=== PATIENT | female | born 1995 | race Caucasian/White ===

== ENCOUNTER 2021-07-08 04:24 | Inpatient (IN) | payer MEDICAID, SELFPAY ==
[2021-07-08] VITALS (28 sets, daily range): BP systolic 115–174; BP diastolic 67–97; PULSE 49–75; RESP 14–18; TEMP 36.2–37.1; O2SAT 98; BMI 36.8
[2021-07-08 04:34] LABS: Nitrazine Paper, PH Positive
[2021-07-08 04:36] LABS: Basophils % 0.3 %; Eosinophils # 0.1 10^3/uL (0.0-0.8); Eosinophils % 0.7 %; Hematocrit 35.4 % (37.0-47.0); Hemoglobin 11.8 g/dL (11.5-15.3); Lymphocytes # 2.2 10^3/uL (0.8-4.8); Lymphocytes % 28.3 %; Mean Corpuscular HGB Conc 33.3 g/dL (30.0-36.0); Mean Corpuscular Hemoglobin 29.4 pg (28.0-34.0); Mean Corpuscular Volume 88.3 fl (81-99); Mean Platelet Volume 12.5 fL (7.4-10.4); Monocytes # 0.7 10^3/uL (0.2-0.9); Neutrophils % 61.3 %; Nucleated Red Blood Cells % 0 %; Platelet Count 180 10^3/cmm (130-400); Red Blood Count 4.01 10^6/uL (4.1-5.3); Red Cell Distribution Width 13.1 % (12.1-15.1); White Blood Count 7.7 10^3/uL (4.0-10.0)
[2021-07-08] MEDS: lactated ringers 1,000 ML 999 ML IV ×2 (04:38→05:24)
--- NOTE | 2021-07-08 05:02 | ANES.PAUD2 ---
Pre-Anesthetic Update Pre-Anesthetic Assessment: Date of Surgery/Procedure: 07/08/21 Preop Diagnosis: previous Any changes to Pre-Anesthetic Assessment?: Yes Last Intake: 1999- food 2100- clear liquid Labs Last 48hrs: Laboratory Results - last 48 hr 07/08/21 04:26 WBC 7.7 RBC 4.01 L Hgb 11.8 Hct 35.4 L MCV 88.3 MCH 29.4 MCHC 33.3 RDW 13.1 Plt Count 180 MPV 12.5 H Neut % (Auto) 61.3 Lymph % (Auto) 28.3 [place] % (Auto) 9.0 Eos % (Auto) 0.7 Baso % (Auto) 0.3 Neut # (Auto) 4.70 Lymph # (Auto) 2.2 [place] # (Auto) 0.7 Eos # (Auto) 0.1 Baso # (Auto) 0.0 Nucleated RBC % (a uto) 0 Nucleated RBCs # 0.0 Vitals: Temperature 97.2 F L 07/08/21 04:04 Pulse Rate 58 L 07/08/21 04:52 Blood Pressure 140/75 07/08/21 04:52 Exam: Pre-Anes Outpt Exam: alert, oriented x 3, clear to auscultation bilaterally and regular rate & rhythm Cardiac Studies: No Data to Display
[2021-07-08] MEDS: metoclopramide 5 mg/mL SDV 2 mL 10 MG IVP (05:12)
[2021-07-08] MEDS: famotidine 20 mg/2 mL INJ IVP (05:12)
[2021-07-08] MEDS: citric acid-sodium citrate 30 mL UDC PO (05:14)
--- NOTE | 2021-07-08 05:26 | P.HP_ITS ---
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 She has a history of a . She has a scheduled C- section next week. She presented to the hospital with a complaint of ruptured membranes. She was checked and found to be grossly ruptured. She was nitrazine positive. Her has otherwise been unremarkable. Her blood type is O-. She received a RhoGam on April 19. She was found to have GBS positive urine e kaley in . Otherwise her labs are within normal limits. Review of Systems General: Reports: 10 or more systems reviewed and unremarkable except in HPI and below Const: Reports: fatigue; Denies: fever(s) Eyes: Denies: change in vision Card: Denies: chest pain Musc: Reports: back pain Khris/Lymph: Denies: easy bruising Vitals/I&O/Wt Last Vital Signs Temp 97.2 F L 07/08/21 04:04 Pulse 68 07/08/21 05:20 BP 132/89 07/08/21 05:20 07/07/21 07/07/21 07/08/21 14:59 22:59 06:59 Intake Total 765.9 / 765.9 Balance 765.9 / 765.9 Physical Exam Const: COMMON NORMALS: patient oriented x3 and alert HENMT: COMMON NORMALS: moist oral mucous membranes HEAD & SCALP: normal to inspection Chest: COMMONS NORMALS: normal inspection of the chest Resp: COMMON NORMALS: clear to auscultation bilaterally AUSCULTATION: clear to auscultation bilaterally Cardio: COMMON NORMALS: regular rate and regular rhythm RATE: regular rate RHYTHM: regular rhythm GI: INSPECTION: Yes normal to inspection and Yes other (Gravid) Extremity: COMMON NORMALS: normal to inspection GENERAL: Yes edema (Trace) Neuro: COMMON NORMALS: patient oriented x3, moves all extremities and no sensory deficits noted SENSORIUM/ORIENTATION: Yes alert Psych: COMMON NORMALS: mental status grossly normal Skin: COMMON NORMALS: no rashes or lesions noted GENERAL SKIN EXAM: no rashes or lesions noted Data : 07/08/21 04:26 A&P Assessment and plan (1) 39 weeks gestation of : Status: Acute (2) membranes, spontaneous rupture: Status: Acute (3) History of low transverse section: We will proceed with a section this morning. I once again discussed the risk of a including the risks of bleeding, infection, and damage intra-abdominal organs with both the patient and her significant other. Had no further questions and wished to proceed. Status: Acute Attestations Medical Necessity Statement*: Routine and post care anticipated Coding Level of Care Code Acute Digital Composer for Chg Fwd Exam Comprehensive Diagnoses 39 weeks gestation of Z3A.39 membranes, spontaneous rupture History of low transverse section Z98.891
--- NOTE | 2021-07-08 08:07 | P.OP_ITS ---
Operative Report Date of procedure: July 08, 2021 Pre-op Diagnosis: previous , 39-week EGA, spontaneous rupture membranes Post-op diagnosis: same Procedure Done: 1. Repeat lower transverse section Specimens removed/disposition: 1. Female infant with a weight of pounds 4 ounces, and Apgars of 9 and 9 2. Placenta with a three-vessel cord delivered intact Anesthesia: Other (Spinal) Estimated blood loss (mL): 500 Complications: None Condition: stable Disposition: floor (OB) Procedure: The patient was brought back to the operating room where she was prepped and draped in usual sterile fashion. Anesthesia was found to be adequate. A lower transverse skin incision was then made with a #10 blade. I then dissected down to the underlying subcutaneous tissue until arriving at the prerectal fascia. The fascia was then nicked with the scalpel bilaterally. The fascial incisions were then carried laterally with Eid scissors. Attention was then turned to the superior aspect of the incision which was grasped with kochers and tented up away from the underlying rectus abdominis muscles. The muscles were then dissected away from the fascia manually, and later with Stanton s cissors. Attention was then turned to the inferior aspect of the incision, and the fascia was dissected away from the underlying muscle in similar fashion. The rectus abdominis muscles were then spread manually. The peritoneum was entered manually. Excellent visualization of the uterus was noted. A lower transverse uterine incision was then made with a #10 blade. Upon arriving at the intrauterine cavity, the uterine incision was then extended manually. The was noted to be in vertex position. The baby was delivered without difficulty. After delivery of the head, the mouth and nose were suctioned at the site of the incision. There was no meconium. There was no nuchal cord. The baby was then completely delivered and placed on the abdomen. The cord was cut and clamped. The baby was then handed to the waiting nurse. The placenta was removed intact. Due to adhesions, the uterus was not externalized. The uterine incision was reapproximated in a single layer.. The first layer was performed with 0 Vicryl in a running locked stitch. The uterus was replaced into the abdomen. The peritoneum was then irrigated with warm saline. I reexamined the uterine incision and found it to be hemostatic. The rectus abdominis muscles were then reapproximated using 0 Vicryl in a running stitch. The fascia was then reapproximated using 0 Vicryl in running stitch. The subcutaneous tissue was then reapproximated using 0 Vicryl in a running stitch. The skin was reapproximated using jose francisco. A sterile dressing was placed. All counts were correct x2. Both the mother and baby were in stable condition. Associated Problem List Diagnoses (1) membranes, spontaneous rupture: (2) 39 weeks gestation of : (3) History of low transverse section:
[2021-07-08] MEDS: ondansetron 2 mg/ML SDV 2 mL 4 MG IVP (10:15)
[2021-07-08] MEDS: ketorolac 30 mg/mL INJ IVP ×2 (10:15→22:14)
[2021-07-08] MEDS: dextrose 5%-lactated ringers 1,000 ML 125 ML IV (15:51)
[2021-07-08 21:43] LABS: Hematocrit 32.9 % (37.0-47.0); Hemoglobin 10.9 g/dL (11.5-15.3); Mean Corpuscular HGB Conc 33.1 g/dL (30.0-36.0); Mean Corpuscular Hemoglobin 29.9 pg (28.0-34.0); Mean Corpuscular Volume 90.1 fl (81-99); Mean Platelet Volume 12.2 fL (7.4-10.4); Platelet Count 160 10^3/cmm (130-400); Red Blood Count 3.65 10^6/uL (4.1-5.3); Red Cell Distribution Width 13.2 % (12.1-15.1); White Blood Count 9.1 10^3/uL (4.0-10.0)
[2021-07-08] MEDS: lanolin oint 7 gm 1 APPLIC TOPICAL (22:14)
[2021-07-09 04:46] VITALS: BP 140/92; PULSE 78; RESP 14; TEMP 36.8; O2SAT 97
--- NOTE | 2021-07-09 07:09 | PM.OBGYDC ---
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 She had a scheduled planned for the subsequent week. As result she was set up for a after determined that her membranes had ruptured. Her was unremarkable. There are no complications. Her course was also unremarkable. She was passing flatus within 7 hours of surgery. Her pain was well controlled. Her bleeding was within normal limits. She tolerated eating well. She is ambulating without difficulty. She breast-fed well. Information Peripartum Data: Infant Delivery Method: Physical Exam Narrative: EXAM NARRATIVE: She is in no acute distress Lungs are clear auscultation bilaterally Her heart has a regular rate and rhythm Her fundus is below the umbilicus and firm Her dressing is clean, dry and intact Her extremities have trace edema Urinary Catheter Management^: Claros: Cath Placed During This Visit: yes, but has since been removed by the nurse Reason for Continuing Indwelling Catheter: Decision to DC Catheter Urinary Catheter Date of Insertion: 07/08/21 Urinary Catheter Time of Insertion: 06:00 Date Urinary Catheter Removed: 07/08/21 Time Urinary Catheter Discontinued: 18:45 Discharge Data Data Completed and Pending: Labs from last 24 hours 07/08/21 20:45 WBC 9.1 RBC 3.65 L Hgb 10.9 L Hct 32.9 L MCV 90.1 MCH 29.9 MCHC 33.1 RDW 13.2 Plt Count 160 MPV 12.2 H Vitals: Last Vital Signs Temp 98.2 F 07/09/21 04:46 Pulse 78 07/09/21 04:46 Resp 14 07/09/21 04:46 BP 140/92 07/09/21 04:46 Pulse Ox 97 07/09/21 04:46 Discharge Plan Discharge Patient Disposition: Home Condition: Stable Prescriptions: New ibuprofen 800 mg Tablet 800 mg PO TID Qty: 45 RF: 0 hydrocodone-acetaminophen 5-325 mg Tablet 1 - 2 tab PO Q4H PRN (Reason: Moderate To Severe Pain) Qty: 20 RF: 0 -U 106.5-1 mg Capsule 1 cap PO BREAKFAST Qty: 90 RF: 0 Discharge Orders: Discharge Order (Routine); Ordered 07/09/21 Ordered By: Rancho Bates Referrals: Rancho Bates MD [Primary Care Provider] - 4-7 days Discharge Diet: Usual diet Discharge Activity: Limit activity as instructed Patient Instructions: Depression (GEN), Pre-eclampsia and Eclampsia (DC), Bleeding (DC), OB - Agustin, OB Discharge Report, OB Food/Drug Interaction Guide, Opioid Safety, OB Home Care, OB Proud Parent Packet 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
[2021-07-09 10:23] VITALS: BP 123/77; PULSE 86; RESP 16; TEMP 36.5; O2SAT 98
[2021-07-09] MEDS: prenatal vitamin Capsule 1 CAP PO (10:53)
[2021-07-09] MEDS: docusate sodium 100 mg Capsule PO (10:53)
[2021-07-09] MEDS: ibuprofen 800 mg tablet PO ×2 (10:53→14:50)
[2021-07-09 15:46] VITALS: BP 134/86; PULSE 82; RESP 18; TEMP 36.5; O2SAT 99
[2021-07-09 16:10] VITALS: BP 134/86; PULSE 82; RESP 18; TEMP 36.5; O2SAT 99
== END 2021-07-09 16:05 | disposition home or self-care (01) | DRG 788 ==
LOC: OPOB 04:33 → OBGYN 04:33
PROVIDERS: Admitting Provider Family Medicine; PCP Family Medicine; Visit Provider Family Medicine
PROC: 10D00Z1 Extraction of Products of Conception, Low, Open Approach (ICD-10-PCS; CPT 59514; principal; 2021-07-08 06:00)
DX: O34.211 Maternal care for low transverse scar from previous cesarean delivery (principal); Z3A.39 39 weeks gestation of pregnancy; Z37.0 Single live birth; O99.824 Streptococcus B carrier state complicating childbirth
CPT/HCPCS: 12345; 36415; 51702; 59025; 59409; 83986; 85025; 85027; 85460; 86850; 86900; 90384; 96374; 96375; 99211; G0378; J0690; J1885; J2274; J2405; J2765; J3490

== ENCOUNTER 2025-03-17 14:18 | Oncology outpatient (recurring) (ONCR) | payer MEDICAID, SELFPAY ==
[2025-03-17] MEDS: rho(d) immune globulin 1,500 unit Syringe 1500 UNIT IM (15:12)
== END 2025-03-18 23:59 | disposition home or self-care (01) ==
LOC: ONCMED 14:21
PROVIDERS: PCP Family Medicine; Visit Provider Family Medicine
DX: O26.893 Other specified pregnancy related conditions, third trimester (principal); Z67.41 Type O blood, Rh negative
CPT/HCPCS: 96372; J2790

== ENCOUNTER 2025-05-25 09:20 | Outpatient (CLI) | payer MEDICAID, SELFPAY ==
[2025-05-25 09:35] VITALS: BP 138/84; PULSE 75
[2025-05-25 09:53] VITALS: BP 136/85; PULSE 81
[2025-05-25 10:05] VITALS: BP 132/75; PULSE 74
[2025-05-25 10:07] LABS: Hematocrit 33.1 % (36-47); Hemoglobin 11.10 g/dL (11.27-16.99); Mean Corpuscular HGB Conc 33.5 g/dL (30-55); Mean Corpuscular Hemoglobin 29.4 pg (27-33); Mean Corpuscular Volume 87.8 fl (85-98); Nucleated Red Blood Cells % 0 %; Platelet Count 162 10^3/cmm (157-399); Red Blood Count 3.77 10^6/uL (3.85-5.65); White Blood Count 8.04 10^3/uL (3.29-11.43)
[2025-05-25 10:10] LABS: Glucose Urine UA Negative (Normal); Nitrate Urine Negative (Negative); Specific Gravity, Urine 1.009 (1.005-1.030)
[2025-05-25 10:16] LABS: Add Urine Microscopic? YES
[2025-05-25 10:20] VITALS: BP 126/76; PULSE 72
[2025-05-25 10:24] LABS: Alanine Aminotransferase 23 U/L (0-33); Albumin Level 3.4 g/dL (3.5-5.2); Alkaline Phosphatase 122 U/L (35-105); Anion Gap 17.0 (5-19); Aspartate Amino Transferase 27 U/L (0-32); Blood Urea Nitrogen 12 mg/dL (6-20); Calcium 9.4 mg/dL (8.5-10.5); Carbon Dioxide 20 mmol/L (22-29); Chloride 104 mmol/L (98-107); Globulin 3.4 g/dL (1.3-4.6); Glucose 69 mg/dL (65-115); Osmolality Calculated 282 mOsm/kg (285-295); Potassium 4.0 mmol/L (3.5-5.1); Sodium 137 mmol/L (136-145); Total Protein 6.8 g/dL (6.6-8.7); Uric Acid 6.0 mg/dL (2.4-5.7)
[2025-05-25 10:28] LABS: UPRO/UCREAT Ratio 0.09 mg/mg CR
[2025-05-25 10:35] VITALS: BP 124/74; PULSE 66
== END 2025-05-25 10:45 | disposition home or self-care (01) ==
LOC: OPOB 09:24 → OBGYN 09:28
PROVIDERS: PCP Family Medicine; Visit Provider Family Medicine
DX: O26.899 Other specified pregnancy related conditions, unspecified trimester (principal); Z3A.00 Weeks of gestation of pregnancy not specified
CPT/HCPCS: 36415; 59025; 80053; 81001; 82570; 84156; 84550; 85025; 99211

== ENCOUNTER 2025-06-02 05:10 | Inpatient (IN) | payer MEDICAID, SELFPAY ==
--- NOTE | 2025-05-25 08:30 | ANES.PREANE2 ---
Pre-Anesthetic Assessment Height/Weight: Height 1.68 m Preop Diagnosis: IUP Operation Date: 06/02/25 07:20 Proposed Procedures p Section Repeat With Tubal(Bilateral) - Rancho Bates MD Familial anesthetic complications: None Social No alcohol and No tobacco Exam alert, oriented x 3, clear to auscultation bilaterally and regular rate & rhythm Airway Mallampati: Class II Dentition: full Anesthetic Plan ASA status: 2 Anesthesia: Regional (specify below) Risk of > 500 ml blood loss (7ml/kg in children): Yes, adequate IV access and fluids planned Medications/Allergies Home Medications ?Medication ?Instructions ?Recorded ?Confirmed ?Last Taken ?Type hydrocodone 5 mg-acetaminophen 325 1 - 2 tab PO Q4H PRN Moderate To 07/09/21 Unknown Rx mg tablet Severe Pain #20 tabs ibuprofen 800 mg tablet 800 mg PO TID #45 tabs 07/09/21 Unknown Rx multivitamin no.51-ferrous 1 cap PO BREAKFAST #90 caps 07/09/21 Unknown Rx fumarate 106.5 mg-folic acid 1 mg capsule (-U) Allergies Allergy/AdvReac Type Severity Reaction Status Date / Time Penicillins Allergy Unknown Verified 07/09/21 14:49
[2025-06-02] VITALS (9 sets, daily range): BP systolic 118–151; BP diastolic 59–73; PULSE 60–74; RESP 16–18; TEMP 36.6–37.2; O2SAT 95–98; BMI 36.6
--- OUTSIDE RECORDS SUMMARY | 2025-06-02 05:13 | XMS_ITS | Continuity of Care Document ---
Author Organization [facility] Edilma, [place], [facility] ([facility]) Address [address] [place] [address] Assessment Encounter Date Assessment Date Assessment LastModified by Organization Details LastModified Time 06/01/2025 06/01/2025 We discussed the risks and alternatives to a tubal ligation. We discussed the risks of bleeding, infection and damage to intraabdominal organs. We also discussed the increased risk of ectopic and a chance to become again despite a successful tubal ligation. We discussed the risks of a including the risks of bleeding, infection, and damage to intra-abdominal organs. She has no further questions and wishes to proceed. [email or web address] Not available 06/01/2025 10:19:58 Plan of Treatment Reminders Order Date Submit Date Provider Last Modified By Organization Details Last Modified Time Details Appointments RETURN OB 2024 08:50A M Rancho Bates MD Not available Not available Not available Lab None recorded . Referral None recorded . Procedures None recorded . Surgeries None recorded . Imaging None recorded . Medication Orders None recorded . Patient TargetsNo targets recorded. Patient InstructionsNo instructions recorded. Reason for Referral None Reported. Results Created Date Observation Date Name Description Value Unit Range Abnormal Flag Note LastModifiedBy Organization Detail LastModifiedTime 12/04/19 25 12/01/2024 imagi ng/di agnos tic resul t No observ ation record ed. [email or web address] Not Available 2024 16:13:26 01/09/20 25 01/08/2025 US, obste tric, 2nd trime ster No observ ation record ed. [facility] [address] [place], [address], 01/19/2025 19:34:21 02/07/20 25 02/04/2025 US, obste tric, follo w-up No observ ation record ed. [email or web address] [facility] [address] [place], [address], 02/11/2025 18:53:38 Result Notes None recorded. Problems Name Problem SNOMED Code Status Onset Date Resolution Date Notes Provider Name and Address Organization Details Recorded Time Normal in multigravid a 1623768644510 06 Active 2024 MAI Velasquez [facility], RachealLElvaCElva 5 12:34:31 Normal in multigravid a 4370329685176 06 Active 2024 MAI Velasquez [facility], LElvaLElvaCElva 5 12:34:31 Nausea and vomiting in Active 2024 NEYDA perez [facility], LElvaLElvaCElva 5 10:10:28 Hypertensio n complicatin g 0395124522071 2 Active 2024 Marky Miramontes MD [address] [place], [address], [facility], LElvaLNicole 5 15:27:05 Problem Notes None recorded. Procedures Surgical History Date Name Laterality Status Provider Name and Address Organization Details Recorded Time 12/24/19 25 Date of Last Pap Smear completed MAI ROCK [facility] [place] 04/15/2025 10:21:56 12/24/19 25 [facility] Papanicolaou [facility] 10:21:30 07/08/20 21 delivery completed [facility], L.LElvaClEva 11/18/2024 09:38:48 06/24/20 17 delivery completed [facility], L.LElvaC. 11/18/2024 09:38:37 extraction of wisdom tooth completed [facility], L.LNicole 11/18/2024 09:39:09 Imaging Results None recorded. Procedure Notes None recorded. Medical Equipment None Reported. Allergies Allergen ID Allergen Name Allergen Category Reaction Reaction Severity Criticality Documentation Date Start Date Code Code System Note Provider Name and Address Organization Details Recorded Time 07309 penicilli n V potassium medicatio n other Not available Not available 06/16/2023 5 RxNorm React ion: she is unsur e of react ion but it sends her to the hospi tania; Comme nt: Recor ded 08/29 11:31 AM by Mai humphreys er, Offic e Visit ; Promo calista; Signi ficluli ce: *; Reaso n: Drug aller gy; ; Not Available [facility] 3 02:27:09 06510 latex environme nt,medica tion hives Not available Not available 06/16/2023 96581 91 RxNorm React ion: Hives ; Comme nt: Recor ded 08/29 11:31 AM by Mai humphreys er, Offic e Visit ; Promo calista; Signi jena ce: *; ; Not Available [facility] 3 02:27:10 Medications Name Sig Start Date Stop Date Status Note LastModified by Organization Details LastModified Time ondansetr on HCl 4 mg tablet TAKE 1 TABLET BY MOUTH EVERY 6 HOURS NEEDED active Not Available Not Available No t Available norethind gay (contrace ptive) 0.35 mg tablet QD 11/18 completed Recorded 09/21/20 22 2:42PM by Rancho Bates MD, Phone Encounte r; Refill Quantity : 0; Not Available Not Available Not Available cefdinir 300 mg capsule TAKE 1 CAPSULE BY MOUTH EVERY 12 HOURS WITH MEALS FOR 10 DAYS 12/24 completed Not Available Not Available Not Available QD 2020 active VO JR/bh; Recorded 09/30/20 12:52PM by Neyda Rodgers RN, Historic al Summary; Refill Quantity : 100; Tablet; Not Available Not Available Not Available Zyrtec-D active Not Available Not Avai lable Not Available Vitals Date Recorded Body height Body mass index (BMI) Body weight Oxygen saturation Oxygen saturation in Arterial blood by Pulse oximetry Heart rate Respiratory rate Body temperature Systolic And Diastolic Provider Name and Address Organization Details Last Updated DateTime 5 167.64 cm 36.6 kg/m2 501283. 47 g 98 % 98 % 92 /min 18 /min 97.6 [degF] 138/76 mm[Hg] MAI ESPAÑA [facility] 5 09:38:27 Social History Question Answer Notes LastModified by OrganizThe Loadown ion Details LastModified Time Tobacco Smoking Status Never Smoker NEYDA perez [facility] 11/18/2024 09:38:13 Are You Blind Or Do You Have Difficulty Seeing? No Information not available 04/15/2025 Are You Deaf Or Do You Have Serious Difficulty Hearing? No Information not available 04/15/2025 What Was The Date Of Your Most Recent Tobacco Screening? 05/25/2025 [email or web address] Information not available 05/25/2025 What Is Your Relationship Status? Information not available 11/18/2024 Do You Have Difficulty Walking Or Climbing Stairs? No Information not available 04/15/2025 Sex: Unknown Functional Status Question Answer Note LastModified by Organizat ion Details LastModified Time Do you use any illicit or recreational drugs? No Information not available 11/18/2024 Do you or have you ever used any other forms of tobacco or nicotine? No Information not available 11/18/2024 What is your level of alcohol consumption? None Information not available 11/18/2024 Are you currently employed? Yes Information not available 11/18/2024 Are you able to walk? YESWOREST Information not available 04/15/2025 Do you have difficulty doing errands alone? No Information not available 04/15/2025 Are you able to care for yourself? Yes Information n ot available 04/15/2025 Do you have difficulty dressing or bathing? No Information not available 04/15/2025 Mental Status Question Answer Note LastModified by Organization D etails LastModified Time Do you have difficulty concentrating, remembering or making decisions? No Information no t available 04/15/2025 Family History Nothing Reported. Medical History No medical history recorded. Gynecological History Statement/Question Response Abnormal Pap N Date of Last Pap Smear 12/24/2024 Date of LMP 08/12/2024 LMP Definite Obstetrics History GPAL:G 3 P 2 0 0 2 Type Value Full Term 2 Living 2 Total 3 Immunizations Vaccine Type Date Status Note Provider Nam e and Address Organization Details Recorded Time Tdap 7 completed Not Available [facility] 06/16/2023 02:49:50 Tdap 1 completed Not Available [facility] 06/16/2023 02:49:50 Influenza, split virus, trivalent, preservative 3 completed Not Available [facility] 06/16/2023 02:49:50 Influenza, split virus, trivalent, preservative 5 completed Not Available [facility] 06/16/2023 02:49:50 Past Encounters Encounter ID Performer Location Encounter Start Date Encounter Closed Date Diagnosis/Indication Diagnosis SNOMED-CT Code Diagnosis ICD10 Code Diagnosis Note [id number] Rancho Bates MD [facility] ([facility]) [address] [place] [phone] 05/12/2025 09:40:01 05/12/2025 10:28:15 Normal in multigravida 1403100242 10933 Z34.83 Gestation period, 36 weeks 28750132 Z3A.36 [id number] Rancho Bates MD [facility] ([facility]) [address] [place] [phone] 05/18/2025 09:28:48 05/18/2025 10:06:31 Normal in multigravida 4043307077 67634 Z34.83 Gestation period, 37 weeks 10987521 Z3A.37 [id number] Marky Miramontes MD [facility] ([facility]) [address] [place] [phone] 05/25/2025 09:47:43 05/25/2025 10:31:44 Hypertension complicating 4339944350 9102 O16.9 Patient does have elevated blood pressure today. No history of preeclamps ia no history of blood pressure issues. Urine protein increased from trace to 2+. Recommend we obtain lab work and NST. Will send the patient over to labor and delivery to do this. If the patient does have preeclamps ia, then we will likely need to proceed with repeat low-transv erse . Normal pre gnancy in multigravida 4926470672 60358 Z34.83 [id number] Rancho Bates MD [facility] ([facility]) [address] [place] [phone] 06/01/2025 09:31:08 06/01/2025 10:23:24 Normal in multigravida 9083788467 99178 Z34.83 Gestation period, 39 weeks 27304696 Z3A.39 Health Concerns Section Related Observation LastModified by Organization Detai ls LastModified Time None Recorded Concern Status LastModified by Organization Details LastModified Time None Recorded Payers Encounter Date Sequence Insurance Name Policy Number Policy Rose Covered Member ID Rose Member ID Guarantor Name 06/01/2025 1 [facility] (MEDICAID REPLACEMENT - HMO) CRYSTAL Singh [id number] Sophie Singh Notes Date Note Type Note Provider Name and Address Organization Details Recorded Time 06/01/2025 text/html jr ob routineRep orted bypatient.Associated Symptoms:normal movement; no bleeding; no ROM; no vaginal discharge; no vaginal/vulvar itching or irritation; no dysuria; no frequency; no urgency; no hematuria; no fever; no nausea; no emesis; no constipation; no visual changes; no headache; no dizziness; no decrease in urine volume; no hyperreflexia;abdomin al pain;cramping;contrac tions;diarrhea/loose stool;edema;breathles snessNotes:vaginal pressure Rancho Bates MD [address] [place] [address], [phone], [facility], LisaSameer 06/01/2025 10:22:58 OBGyn Episode Ob Episode Information Episode Created Date Number of Fetuses Patient Bloodtype Patient rh Status Prepregnancy Weight lbs Domestic Partner Domestic Partner Phone Father Name 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 consent signed on 04/27/25Rh NegativeNeeds F/U U/S mid to end of January Problem Name Start Date End Date Resolution Snomed Code Not e Normal in multigravida 12/17/2024 [id number] Shanell Calculation Initial Shanell Date Initial Exam Date Initial Exam Provider Initial Ultrasound Date Last Menstrual Period Date Ultra Sound Weeks Gestation 06/05/2025 11/18/2024 12/01/2024 08/12/2024 13 Eighteen To Twenty Week Shanell Update Ultra Sound Date Fundal Height At Umbil Quickening Date Ultra Sound Latest Weeks Gestation Final Shanell Confirmed By Final Shanell Confirmed Date Final Shanell Date Ultra Sound Latest Days Gestation 0 0 Pre-dilia Flowsheet Flowsheet Date 11/18/2024 Doyle Score Blood Edema Fundus Height Fundus Units Glucose Ketones Leukocytes Nitrite Labor Signs Protein Cervic Dilation Cervic Effacement Cervic Station Type Weight in lbs Pre/Post Dialysis Refused 194.360397814853 BP Diastolic BP Location Tested BP Systolic BP Type 64 116 Fetus Heart Rate Present A 168 Present Fetus Movement A No Comments OBI- nausea, vomiting, Flowsheet Date 12/01/2024 Doyle Score Blood Edema Fundus Height Fundus Units Glucose Ketones Leukocytes Nitrite Labor Signs Protein Cervic Dilation Cervic Effacement Cervic Station Type Weight in lbs Pre/Post Dialysis Refused BP Diastolic BP Location Tested BP Systolic BP Type Fetus Heart Rate Present Fetus Movement Comments u/s on 12/01/24, SHANELL 06/05/25, EGA 13.3 Flowsheet Date 12/07/2024 Doyle Score Blood Edema Fundus Height Fundus Units Glucose Ketones Leukocytes Nitrite Labor Signs Protein Cervic Dilation Cervic Effacement Cervic Station Type Weight in lbs Pre/Post Dialysis Refused Weight 193.633886952034 BP Diastolic BP Location Tested BP Systolic BP Type 78 L arm 124 sitting Fetus Heart Rate Present Fetus Movement Comments Flowsheet Date 12/24/2024 Doyle Score Blood Edema Fundus Height Fundus Units Glucose Ketones Leukocytes Nitrite Labor Signs Protein Cervic Dilation Cervic Effacement Cervic Station Type Weight in lbs Pre/Post Dialysis Refused 196.409045241292 BP Diastolic BP Location Tested BP Systolic BP Type 68 130 sitting Fetus Heart Rate Present A 164 Present Fetus Movement A Yes Comments NOB,nausea, breast tendernes s Flowsheet Date 12/30/2024 Doyle Score Blood Edema Fundus Height Fundus Units Glucose Ketones Leukocytes Nitrite Labor Signs Protein Cervic Dilation Cervic Effacement Cervic Station Type Weight in lbs Pre/Post Dialysis Refused BP Diastolic BP Location Tested BP Systolic BP Type Fetus Heart Rate Present Fetus Movement Comments [facility] RA comple te Flowsheet Date 01/08/2025 Doyle Score Blood Edema Fundus Height Fundus Units Glucose Ketones Leukocytes Nitrite Labor Signs Protein Cervic Dilation Cervic Effacement Cervic Station Type Weight in lbs Pre/Post Dialysis Refused BP Diastolic BP Location Tested BP Systolic BP Type Fetus Heart Rate Present Fetus Movement Comments Flowsheet Date 01/12/2025 Doyle Score Blood Edema Fundus Height Fundus Units Glucose Ketones Leukocytes Nitrite Labor Signs Protein Cervic Dilation Cervic Effacement Cervic Station Type Weight in lbs Pre/Post Dialysis Refused BP Diastolic BP Location Tested BP Systolic BP Type Fetus Heart Rate Present Fetus Movement Comments u/s on 01/08/25, EGA 18.6, ED D 06/05/25, Cephalic presentation. Placenta anterior, no previa or abruption. 4 chamber heart identified but limited. Limited RVOT, the LVOT appears normal. Recommend short-term follow up of the intracranial structures, four-chamber heart, kidneys and RVOT. Poorly visualized due to early gestational age and maternal body habitus. The remaining anatomy appears normal. No growth asymmetry. Flowsheet Date 01/19/2025 Doyle Score Blood Edema Fundus Height Fundus Units Glucose Ketones Leukocytes Nitrite Labor Signs Protein Cervic Dilation Cervic Effacement Cervic Station 22 cm none none Negative neg Type Weight in lbs Pre/Post Dialysis Refused 202.612332554830 BP Diastolic BP Location Tested BP Systolic BP Type 70 130 sitting Fetus Heart Rate Present A 156 Present Fetus Movement A Yes Comments occ edema in feet/legs, coug h/cold Flowsheet Date 02/04/2025 Doyle Score Blood Edema Fundus Height Fundus Units Glucose Ketones Leukocytes Nitrite Labor Signs Protein Cervic Dilation Cervic Effacement Cervic Station Type Weight in lbs Pre/Post Dialysis Refused BP Diastolic BP Location Tested BP Systolic BP Type Fetus Heart Rate Present Fetus Movement Comments u/s on 02/04/25,follow up- EG A 22.5, no acute findings. IZABEL 11.9, vertex lie Flowsheet Date 02/16/2025 Doyle Score Blood Edema Fundus Height Fundus Units Glucose Ketones Leukocytes Nitrite Labor Signs Protein Cervic Dilation Cervic Effacement Cervic Station 25 cm none none Negative neg Type Weight in lbs Pre/Post Dialysis Refused 207.847762343579 BP Diastolic BP Location Tested BP Systolic BP Type 68 124 sitting Fetus Heart Rate Present A 142 Present Fetus Movement A Yes Comments feeling well Flowsheet Date 03/16/2025 Doyle Score Blood Edema Fundus Height Fundus Units Glucose Ketones Leukocytes Nitrite Labor Signs Protein Cervic Dilation Cervic Effacement Cervic Station Type Weight in lbs Pre/Post Dialysis Refused BP Diastolic BP Location Tested BP Systolic BP Type Fetus Heart Rate Present Fetus Movement Comments Flowsheet Date 03/16/2025 Doyle Score Blood Edema Fundus Height Fundus Units Glucose Ketones Leukocytes Nitrite Labor Signs Protein Cervic Dilation Cervic Effacement Cervic Station 30 cm none none Negative neg Type Weight in lbs Pre/Post Dialysis Refused Weight 210.928634729234 BP Diastolic BP Location Tested BP Systolic BP Type 68 110 sitting Fetus Heart Rate Present A 158 Fetus Movement A Yes Comments glucose today, order sent to [facility] for Rhogam, SOB, Hip pain Flowsheet Date 03/16/2025 Doyle Score Blood Edema Fundus Height Fundus Units Glucose Ketones Leukocytes Nitrite Labor Signs Protein Cervic Dilation Cervic Effacement Cervic Station Type Weight in lbs Pre/Post Dialysis Refused BP Diastolic BP Location Tested BP Systolic BP Type Fetus Heart Rate Present Fetus Movement Comments Repeat scheduled f or 06/02/25, anesthesia consult scheduled for 05/25/25, (OR- Lin, OB- Vincenzo) faxed to CS Flowsheet Date 03/30/2025 Doyle Score Blood Edema Fundus Height Fundus Units Glucose Ketones Leukocytes Nitrite Labor Signs Protein Cervic Dilation Cervic Effacement Cervic Station 32 cm none trace Type Weight in lbs Pre/Post Dialysis Refused Weight 215.156351662188 BP Diastolic BP Location Tested BP Systolic BP Type 76 128 Fetus Heart Rate Present A 140 Present Fetus Movement A Yes Comments heartburn, Right hip pain, v aginal pressure Flowsheet Date 04/15/2025 Doyle Score Blood Edema Fundus Height Fundus Units Glucose Ketones Leukocytes Nitrite Labor Signs Protein Cervic Dilation Cervic Effacement Cervic Station 33 cm none none Negative Gautam Dowell neg Type Weight in lbs Pre/Post Dialysis Refused Weight 217.082145070186 BP Diastolic BP Location Tested BP Systolic BP Type 70 122 sitting Fetus Heart Rate Present A 146 Present Fetus Movement A Yes Comments cramping, increased discharg e, loose stools, sob, hip pain, vaginal pressure, back and pelvis pain, Flowsheet Date 04/27/2025 Doyle Score Blood Edema Fundus Height Fundus Units Glucose Ketones Leukocytes Nitrite Labor Signs Protein Cervic Dilation Cervic Effacement Cervic Station 35 cm none trace trace Type Weight in lbs Pre/Post Dialysis Refused Weight 222.1814866874 BP Diastolic BP Location Tested BP Systolic BP Type 68 136 Fetus Heart Rate Present A 140 Present Fetus Movement A Yes Comments pelvic pain, vaginal pressur e, pain in hips, swelling feet, Flowsheet Date 05/12/2025 Doyle Score Blood Edema Fundus Height Fundus Units Glucose Ketones Leukocytes Nitrite Labor Signs Protein Cervic Dilation Cervic Effacement Cervic Station 36 cm none Oliver Dowell 1+ 0cm 0% -4 Type Weight in lbs Pre/Post Dialysis Refused Weight 224.803443433538 BP Diastolic BP Location Tested BP Systolic BP Type 78 136 Fetus Heart Rate Present A 148 Present Fetus Movement A Yes Comments group B strep collected toda ypelvic pain, vaginal pressure, pain in hips, swelling Flowsheet Date 05/15/2025 Doyle Score Blood Edema Fundus Height Fundus Units Glucose Ketones Leukocytes Nitrite Labor Signs Protein Cervic Dilation Cervic Effacement Cervic Station Type Weight in lbs Pre/Post Dialysis Refused BP Diastolic BP Location Tested BP Systolic BP Type Fetus Heart Rate Present Fetus Movement Comments Group B strep NegativeOB rec ords sent Flowsheet Date 05/18/2025 Doyle Score Blood Edema Fundus Height Fundus Units Glucose Ketones Leukocytes Nitrite Labor Signs Protein Cervic Dilation Cervic Effacement Cervic Station 37 cm none Oliver Dowell trace Type Weight in lbs Pre/Post Dialysis Refused Weight 224.106745784514 BP Diastolic BP Location Tested BP Systolic BP Type 72 L arm 124 Fetus Heart Rate Present A 140 Present Fetus Movement A Yes Comments pelvic pain, vaginal pressur e, pain in hips, swelling Flowsheet Date 05/25/2025 Doyle Score Blood Edema Fundus Height Fundus Units Glucose Ketones Leukocytes Nitrite Labor Signs Protein Cervic Dilation Cervic Effacement Cervic Station 1+ 37 cm none none Negative 2+ Type Weight in lbs Pre/Post Dialysis Refused Weight 227.2475885550 BP Diastolic BP Location Tested BP Systolic BP Type 92 150 Fetus Heart Rate Present A 135 Fetus Movement A Yes Comments Elevated blood pressure, Sen t to labor and delivery for preeclampsia labs Flowsheet Date 06/01/2025 Doyle Score Blood Edema Fundus Height Fundus Units Glucose Ketones Leukocytes Nitrite Labor Signs Protein Cervic Dilation Cervic Effacement Cervic Station 39 cm none trace Negative Oliver Dowell trace Type Weight in lbs Pre/Post Dialysis Refused Weight 227.4420829948 BP Diastolic BP Location Tested BP Systolic BP Type 76 138 sitting Fetus Heart Rate Present A 146 Present Fetus Movement A Yes Comments abdominal pain/cramping, vag inal pressure, mild edema, sob, Menstrual History Last Menstrual Date Menses Monthly On Bcp Conception Prior Menses Frequency Hcg Plus Date Menarche Onset Age 0908/12/2024 Delivery Information Delivery Date Delivery Type Labor Anesthesia Weeks Gestation Incision Type Labor Labor Length Hrs Delivered By Post Complications Tubal Sterilization Discharge Date Comments Discharge Information Feeding Method Contraceptive Method Maternal HG B and HCT Levels
--- OUTSIDE RECORDS SUMMARY | 2025-06-02 05:13 | XMS_ITS | Data Portability ---
Author Organization [facility] Donovan [facility] Address [address] [facility] [address] [place] [address] Assessment Encounter Date Assessment Date Assessment LastModified by Organization Details LastModified Time 04/27/2025 04/27/2025 We discussed the risks and alternatives to a tubal ligation. We discussed the risks of bleeding, infection and damage to intraabdominal organs. We also discussed the increased risk of ectopic and a chance to become again despite a successful tubal ligation. Not available 04/27/2025 10:43:48 06/01/2025 06/01/2025 We discussed the risks and [...] no further questions and wishes to proceed. Not available 06/01/2025 10:19:58 Plan of Treatment Reminders Order Date Submit Date Provider Last Modified By Organization Details Last Modified Time Details Appointments RETURN OB 2024 08:50A Christy Bates MD Not available Not available Not available Lab streptoco ccus group B, culture, unspecifi ed specimen 2024 025 [facility], [address] [facility] [address] [place], [address], 05/15/2025 08:58:42 Referral None recorded. Procedures None recorded. Surgeries None recorded. Imaging None recorded. Medication Orders None recorded. Patient TargetsNo targets recorded. Patient InstructionsNo instructions recorded. Reason for Referral None Reported. Results Created Date Observation Date Name Description Value Unit Range Abnormal Flag Note LastModifiedBy Organization Detail LastModifiedTime 05/12/2005/15/2025 CULTU RE, GROUP B STREP WITH SUSCE PTIBI LITY culture, group B strep with susceptibili ty SEE NOTE CULTU RE, GROUP B STREP WITH SUSCE PTIBI LITY Micro Numbe r: [id number] 173 Test Statu s: Final Speci men Sourc e: Vagin al/an orect al Speci men Quali ty: Adequ ate Resul t: No group B Strep tococ cus isola calista Note per CDC guide lines optim al recov ilda is achie charles by swabb ing both the lower vagin a and rectu m (thro ugh the anal sphin cter) . Not Available [address], [address], 05/15/2025 08:58:42 Result Notes None recorded. Problems Name Problem SNOMED Code Status Onset Date Resolution Date Notes Provider Name and Address Organization Details Recorded Time Normal in multigravid a 2603391920172 06 Active 2024 [facility] 12:34:31 Normal in multigravid a 1648981413104 06 Active 2024 MAI Velasquez [facility], L.LElvaCElva 5 12:34:31 Nausea and vomiting in Active 2024 [facility]DA [facility]rez [facility] 5 10:10:28 Hypertensio n complicatin g 2421926537592 2 Active 2024 Marky Miramontes MD [address] [place] [address], [phone] , [facility] 5 15:27:05 Problem Notes None recorded. Procedures Surgical History Date Name Laterality Status Provider Name and Address Organization Details Recorded Time 12/24/19 25 Date of Last Pap Smear completed [facility], L.L.CElva 04/15/2025 10:21:56 12/24/19 25 sampling of cervix for Papanicolaou smear completed [facility], Lisa.LNicole 04/15/2025 10:21:30 07/08/20 21 delivery completed [facility], Lisa.LNicole 11/18/2024 09:38:48 06/24/20 17 delivery completed [facility], L.LNicole 11/18/2024 09:38:37 extraction of wisdom tooth completed [facility], L.LNicole 11/18/2024 09:39:09 Imaging Results None recorded. Procedure Notes None recorded. Medical Equipment None Reported. Allergies Allergen ID Allergen Name Allergen Category Reaction Reaction Severity Criticality Documentation Date Start Date Code Code System Note Provider Name and Address Organization Details Recorded Time 00494 penicilli n V potassium medicatio n other Not available Not available 06/16/202348187 5 RxNorm React ion: she is unsur e of react ion but it sends her to the hospi tania; Comme nt: Recor ded 08/29 11:31 AM by Mai sewelland er, Offic e Visit ; Promo calista; Signi fican ce: *; Reaso n: Drug aller gy; ; Not Available [facility] 3 02:27:09 10032 latex environme nt,medica tion hives Not available Not available 06/16/2023 90496 91 RxNorm React ion: Hives ; Comme nt: Recor ded 08/29 11:31 AM by Mai humphreys er, Offic e Visit ; Promo calista; Signi fican ce: *; ; Not Available [facility] 3 02:27:10 Medications Name Sig Start Date [...] QD 2020 active VO JR/bh; Recorded 09/30/20 21 12:52PM by Neyda Rodgers RN, Historic al Summary; Refill Quantity : 100; Tablet; Not Available Not Available Not Available Zyrtec-D active Not Available Not Avai lable Not Available Vitals Date Recorded Body height Body mass index (BMI) Body weight Respiratory rate Heart rate Oxygen saturation Oxygen saturation in Arterial blood by Pulse oximetry Body temperature Systolic And Diastolic Provider Name and Address Organization Details Last Updated DateTime 5 167.64 cm 35.8 kg/m2 371701. 51 g 16 /min 78 /min 98 % 98 % 97.9 [degF] 136/68 mm[Hg] [facility] 5 10:19:10 Date Recorded Body height Body mass index (BMI) Body weight Oxygen saturation Oxygen saturation in Arterial blood by Pulse oximetry Heart rate Respiratory rate Body temperature Systolic And Diastolic Provider Name and Address Organization Details Last Updated DateTime 5 167.64 cm 36.2 kg/m2 285306. 69 g 99 % 99 % 78 /min 18 /min 98.4 [degF] 136/78 mm[Hg] NEYDA [facility] 5 10:02:51 Date Recorded Body height Body mass index (BMI) Body weight Respiratory rate Oxygen saturation Oxygen saturation in Arterial blood by Pulse oximetry Heart rate Body temperature Systolic And Diastolic Provider Name and Address Organization Details Last Updated DateTime 5 167.64 cm 36.2 kg/m2 465624. 69 g 18 /min 98 % 98 % 84 /min 97.9 [degF] 124/72 mm[Hg] NEYDA BONIFACIO [facility], L.L.CElva 5 09:39:21 Date Recorded Body height Body mass index (BMI) Body weight Body temperature Oxygen saturation Oxygen saturation in Arterial blood by Pulse oximetry Heart rate Systolic And Diastolic Provider Name and Address Organization Details Last Updated DateTime 5 167.64 cm 36.6 kg/m2 912055. 47 g 97.7 [degF] 99 % 99 % 82 /min 150/92 mm[Hg] Angelia [facility], L.L.CElva 5 10:02:02 Date Recorded Body height Body mass index (BMI) Body weight Oxygen saturation Oxygen saturation in Arterial blood by Pulse oximetry Heart rate Respiratory rate Body temperature Systolic And Diastolic Provider Name and Address Organization Details Last Updated DateTime 5 167.64 cm 36.6 kg/m2 166171. 47 g 98 % 98 % 92 /min 18 /min 97.6 [degF] 138/76 mm[Hg] MAI ESPAÑA [facility], L.L.CElva 5 09:38:27 Social History Question Answer Notes LastModified by Organizat ion Details LastModified Time Tobacco Smoking Status Never Smoker NEYDA RODGERS [facility], L.L.CElva 11/18/2024 09:38:13 Are You Blind Or Do You Have Difficulty Seeing? No Information not available 04/15/2025 Are You Deaf Or Do You Have Serious Difficulty Hearing? No Information not available 04/15/2025 What Was The Date Of Your Most Recent Tobacco Screening? 05/25/2025 [email or web address] Information not available 05/25/2025 What Is Your [...] Recorded Time Tdap 7 completed Not Available [facility] 06/16/2023 02:49:50 Tdap 1 completed Not Available [facility] 06/16/2023 02:49:50 Influenza, split virus, trivalent, preservative 3 completed Not Available [facility] 06/16/2023 02:49:50 Influenza, split virus, trivalent, preservative 5 completed Not Available [facility] 06/16/2023 02:49:50 Past Encounters Encounter ID Performer Location Encounter Start Date Encounter Closed Date Diagnosis/Indication Diagnosis SNOMED-CT Code Diagnosis ICD10 Code Diagnosis Note [id number] Rancho Bates MD [facility] ([facility]) [address] [place] [id number] 5 11/18/2024 09:14:55 11/18/2024 10:02:58 Normal in multigravida 3129194638 53465 Z34.80 Gestation period, 14 weeks 78845327 Z3A.14 [id number] Rancho Bates MD [facility] ([facility]) [address] [place] [id number] 5 12/01/2024 10:31:00 12/02/2024 12:43:48 [id number] DAMARI WILL APRN [facility] ([facility]) [address] [place] [id number] 5 12/07/2024 14:01:37 12/07/2024 14:59:27 Sore throat 083959135 J02.9 Acute stre ptococcal pharyngitis 5652046164 J02.0 [id number] Rancho Bates MD [facility] ([facility]) [address] [place] [id number] 5 12/24/2024 09:58:14 12/24/2024 13:11:24 Normal in multigravida 7012933110 46127 Z34.80 [id number] Rancho Bates MD [facility] ([facility]) [address] [place] [id number] 5 01/08/2025 13:57:01 01/09/2025 10:09:09 [id number] Rancho Bates MD [facility] ([facility]) [address] [place] [id number] 5 01/19/2025 13:02:32 01/19/2025 15:12:00 Normal in multigravida 7713762444 64636 Z34.82 Gestation period, 20 weeks 61573161 Z3A.20 Ultrasound scan abnormal 032290893 R93.89 [id number] Rancho Bates MD [facility] ([facility]) [address] [place] [id number] 5 02/04/2025 09:00:12 02/06/2025 16:37:36 [id number] Rancho Bates MD [facility] ([facility]) [address] [place] [id number] 5 02/16/2025 12:47:27 02/16/2025 13:43:57 Normal in multigravida 8070112143 28175 Z34.82 Gestation period, 24 weeks 957235681 Z3A.24 [id number] Rancho Bates MD [facility] ([facility]) [address] [place] [id number] 5 03/16/2025 11:10:19 03/17/2025 12:41:25 [id number] Rancho Bates MD [facility] ([facility]) [address] [place] [id number] 5 03/16/2025 11:44:47 03/16/2025 13:08:33 Normal in multigravida 7987834866 77227 Z34.83 Gestation period, 28 weeks 45756233 Z3A.28 [id number] Rancho Bates MD [facility] ([facility]) [address] [place] [id number] 5 03/30/2025 09:44:23 03/30/2025 11:07:45 Normal in multigravida 3567074343 90347 Z34.83 Gestation period, 30 weeks 07268472 Z3A.30 [id number] Rancho Bates MD [facility] ([facility]) [address] [place] [id number] 5 04/15/2025 10:13:01 04/15/2025 10:43:27 Normal in multigravida 1422482058 13243 Z34.83 Gestation period, 32 weeks 7622669 Z3A.32 Nausea and vomiting in 7184414056 O21.9 [id number] Rancho Bates MD [facility] ([facility]) [address] [place] [address] [id number] 5 04/27/2025 09:42:53 04/27/2025 10:49:55 Normal in multigravida 2542122427 29926 Z34.83 Gestation period, 34 weeks 53148385 Z3A.34 Consultation [id number] Z3 0.09 [id number] Rancho Bates MD [facility] ([facility]) [address] [place] [id number] 5 05/12/2025 09:40:01 05/12/2025 10:28:15 Normal in multigravida 0871392206 07153 Z34.83 Gestation period, 36 weeks 85137639 Z3A.36 [id number] Rancho Bates MD [facility] ([facility]) [address] [place] [id number] 5 05/18/2025 09:28:48 05/18/2025 10:06:31 Normal in multigravida 4410633309 12872 Z34.83 Gestation period, 37 weeks 00913355 Z3A.37 [id number] Marky Miramontes MD [facility] ([facility]) [address] [place] [id number] 5 05/25/2025 09:47:43 05/25/2025 10:31:44 Hypertension complicating 0003651612 9102 O16.9 Patient does have elevated blood [...] erse . Normal pre gnancy in multigravida 8224097315 97826 Z34.83 [id number] Rancho Bates MD [facility] ([facility]) [address] [place] [id number] 5 06/01/2025 09:31:08 06/01/2025 10:23:24 Normal in multigravida 1904593187 59842 Z34.83 Gestation period, 39 weeks 25871018 Z3A.39 Health Concerns Section Related Observation LastModified by Organization Detai ls LastModified Time None Recorded Concern Status LastModified by Organization Details LastModified Time None Recorded Advance Directives Directive None Recorded Payers Insurance Date Sequence Insurance Name Policy Number Policy Rose Covered Member ID Rose Member ID Guarantor Name 05/22/2025 [place] [facility] (INSTITUTIONAL ) Sophie Singh [id number] Sophie Vo Francisco 12/01/2024 1 *SELF PAY* Do cuauhtemoc Vo Francisco 05/29/2025 1 [facility] PLAN-[place] (MEDICAID REPLACEMENT - HMO) [facility] Sophieloan Singh [id number] Sophie Gilda Singh 05/22/2025 [place] Sophie Gilda Singh [id number] Sophieloan Singh Notes Date Note Type Note Provider Name and Address Organization Details Recorded Time 04/27/2025 text/html ob routineRep orted bypatient.Associated Symptoms:no abdominal pain; no cramping; no contractions; normal movement; no bleeding; no vaginal/vulvar itching or irritation; no dysuria; no frequency; no urgency; no hematuria; no fever; no nausea; no emesis; no constipation; no diarrhea/loose stool; no visual changes; no headache; no dizziness; no breathlessness;vagina l discharge;edemaNotes: hip pain bilateral, worse on Right., vaginal pressure, heartburn, back and pelvic painPt denies any alcohol,tobacco or drug use Rancho Bates MD [address] [place] [address], [phone] [place] [address], L.L.C. 04/27/2025 10:44:54 05/12/2025 text/html ob routineRep orted bypatient.Associated Symptoms:no abdominal pain; no cramping; normal movement; no bleeding; no vaginal/vulvar itching or irritation; no dysuria; no frequency; no urgency; no hematuria; no fever; no nausea; no emesis; no constipation; no diarrhea/loose stool; no visual changes; no headache; no dizziness;contraction s(gautam willard);vaginal discharge;edema;breat hlessnessNotes:hip pain bilateral, worse on Right., vaginal pressure, back and pelvic painPt denies any alcohol,tobacco or drug use Rancho Bates MD [address] [place] [address], [phone], [facility] 05/12/2025 10:25:20 05/18/2025 text/html ob routineRep orted bypatient.Associated Symptoms:no abdominal pain; no cramping; normal movement; no bleeding; no vaginal/vulvar itching or irritation; no dysuria; no frequency; no urgency; no hematuria; no fever; no nausea; no emesis; no constipation; no diarrhea/loose stool; no visual changes; no headache; no dizziness;contraction s(gautam willard);vaginal discharge;edema;breat hlessnessNotes:hip pain bilateral, worse on Right., vaginal pressure, back and pelvic painPt denies any alcohol,tobacco or drug use Rancho Bates MD [address] [place] [address], [phone], [facility], [place] 05/18/2025 10:05:32 05/25/2025 text/html ob routineRep orted bypatient.Associated Symptoms:no abdominal pain; no cramping; normal movement; no bleeding; no ROM; no vaginal/vulvar itching or irritation; no dysuria; no hematuria; no fever; no nausea; no emesis; no constipation; no visual changes; no headache; no dizziness; no decrease in urine volume; no hyperreflexia;contrac tions;vaginal discharge;frequency;u rgency;diarrhea/loose stool;edema;breathles sness 1 week LEANDER - Dr. Bates ptPatient has been having some hip pain and vaginal pressure. Patient denies any other significant concerns. Marky Miramontes MD [address] [place] [address], [phone], [facility], [place] 05/25/2025 15:29:41 06/01/2025 text/html ob routineRep orted bypatient.Associated Symptoms:normal movement; no bleeding; no ROM; no vaginal discharge; no vaginal/vulvar itching or irritation; no dysuria; no frequency; no urgency; no hematuria; no fever; no nausea; no emesis; no constipation; no visual changes; no headache; no dizziness; no decrease in urine volume; no hyperreflexia;abdomin al pain;cramping;contrac tions;diarrhea/loose stool;edema;breathles snessNotes:vaginal pressure Rancho Bates MD [address] [place] [address], [phone], [facility], [place] 06/01/2025 10:22:58 OBGyn Episode Ob Episode Information Episode Created Date Number of Fetuses Patient Bloodtype Patient rh Status Prepregnancy Weight lbs Domestic Partner Domestic Partner Phone Father Name Overhead Line Worker Status 11/18/20 24 1 CLOSED Fetus Data First Name Last Name Admitted to NICU Weight (g) Sex Living Outcome Pediatric Complications Fetus ID Race Codes Race Delivery Type 3146.56 7704 F Full Term 6782 Shanell Calculation Initial Shanell Date Initial Exam Date Initial Exam Provider Initial Ultrasound Date Last Menstrual Period Date Ultra Sound Weeks Gestation 0 Eighteen To Twenty Week Shanell Update Ultra Sound Date Fundal Height At Umbil Quickening Date Ultra Sound Latest Weeks Gestation Final Shanell Confirmed By Final Shanell Confirmed Date Final Shanell Date Ultra Sound Latest Days Gestation 0 0 Menstrual History Last Menstrual Date Menses Monthly On Bcp Conception Prior Menses Frequency Hcg Plus Date Menarche Onset Age Delivery Information Delivery Date Delivery Type Labor Anesthesia Weeks Gestation Incision Type Labor Labor Length Hrs Delivered By Post Complications Tubal Sterilization Discharge Date Comments 7 [facility] 38 CPD, SRO M Discharge Information Feeding Method Contraceptive Method Maternal HG B and HCT Levels Ob Episode Information Episode Created Date Number of Fetuses Patient Bloodtype Patient rh Status Prepregnancy Weight lbs Domestic Partner Domestic Partner Phone Father Name Overhead Line Worker Status 11/18/20 24 1 CLOSED Fetus Data First Name Last Name Admitted to NICU Weight (g) Sex Living Outcome Pediatric Complications Fetus ID Race Codes Race Delivery Type 3288.54 2 F Full Term 6783 Shanell Calculation Initial Shanell Date Initial Exam Date Initial Exam Provider Initial Ultrasound Date Last Menstrual Period Date Ultra Sound Weeks Gestation 0 Eighteen To Twenty Week Shanell Update Ultra Sound Date Fundal Height At Umbil Quickening Date Ultra Sound Latest Weeks Gestation Final Shanell Confirmed By Final Shanell Confirmed Date Final Shanell Date Ultra Sound Latest Days Gestation 0 0 Menstrual History Last Menstrual Date Menses Monthly On Bcp Conception Prior Menses Frequency Hcg Plus Date Menarche Onset Age Delivery Information Delivery Date Delivery Type Labor Anesthesia Weeks Gestation Incision Type Labor Labor Length Hrs Delivered By Post Complications Tubal Sterilization Discharge Date Comments 1 [facility]al 38.4 SROM Discharge Information Feeding Method Contraceptive Method Maternal HG B and HCT Levels Ob Episode Information Episode Created Date Number of Fetuses Patient Bloodtype Patient rh Status Prepregnancy Weight lbs Domestic Partner Domestic Partner Phone Father Name Overhead Line Worker Status 11/18/20 24 1 O Negative OPEN [...] Code Not e Normal in multigravida 12/17/2024 [id number] Shanell Calculation Initial Shanell Date Initial Exam [...] Type Weight in lbs Pre/Post Dialysis Refused 194.998122733773 BP Diastolic BP Location Tested BP Systolic [...] Weight in lbs Pre/Post Dialysis Refused Weight 193.860067763616 BP Diastolic BP Location Tested BP Systolic BP Type 78 L arm 124 sitting Fetus Heart Rate Present Fetus Movement Comments Flowsheet Date 12/24/2024 Doyle Score Blood Edema Fundus Height Fundus Units Glucose Ketones Leukocytes Nitrite Labor Signs Protein Cervic Dilation Cervic Effacement Cervic Station Type Weight in lbs Pre/Post Dialysis Refused 196.499657931913 BP Diastolic BP Location Tested BP Systolic [...] Fetus Heart Rate Present Fetus Movement Comments [facility] RA comple te Flowsheet Date 01/08/2025 Doyle [...] Type Weight in lbs Pre/Post Dialysis Refused 202.962344493231 BP Diastolic BP Location Tested BP Systolic [...] Type Weight in lbs Pre/Post Dialysis Refused 207.812717319305 BP Diastolic BP Location Tested BP Systolic [...] Weight in lbs Pre/Post Dialysis Refused Weight 210.599066100075 BP Diastolic BP Location Tested BP Systolic BP Type 68 110 sitting Fetus Heart Rate Present A 158 Fetus Movement A Yes Comments glucose today, order sent to [facility] for Rhogam, SOB, Hip pain Flowsheet [...] Weight in lbs Pre/Post Dialysis Refused Weight 215.300291650107 BP Diastolic BP Location Tested BP Systolic BP Type 76 128 Fetus Heart Rate Present A 140 Present Fetus Movement A Yes Comments heartburn, Right hip pain, v aginal pressure Flowsheet Date 04/15/2025 Doyle Score Blood Edema Fundus Height Fundus Units Glucose Ketones Leukocytes Nitrite Labor Signs Protein Cervic Dilation Cervic Effacement Cervic Station 33 cm none none Negative Gautam Willard neg Type Weight in lbs Pre/Post Dialysis Refused Weight 217.786153796288 BP Diastolic BP Location Tested BP Systolic [...] Weight in lbs Pre/Post Dialysis Refused Weight 222.3698635663 BP Diastolic BP Location Tested BP Systolic BP Type 68 136 Fetus Heart Rate Present A 140 Present Fetus Movement A Yes Comments pelvic pain, vaginal pressur e, pain in hips, swelling feet, Flowsheet Date 05/12/2025 Doyle Score Blood Edema Fundus Height Fundus Units Glucose Ketones Leukocytes Nitrite Labor Signs Protein Cervic Dilation Cervic Effacement Cervic Station 36 cm none [place] Willard 1+ 0cm 0% -4 Type Weight in lbs Pre/Post Dialysis Refused Weight 224.611019432859 BP Diastolic BP Location Tested BP Systolic [...] Cervic Effacement Cervic Station 37 cm none [place] Willard trace Type Weight in lbs Pre/Post Dialysis Refused Weight 224.968408564125 BP Diastolic BP Location Tested BP Systolic [...] Weight in lbs Pre/Post Dialysis Refused Weight 227.7900941666 BP Diastolic BP Location Tested BP Systolic BP Type 92 150 Fetus Heart Rate Present A 135 Fetus Movement A Yes Comments Elevated blood pressure, Sen t to labor and delivery for preeclampsia labs Flowsheet Date 06/01/2025 Doyle Score Blood Edema Fundus Height Fundus Units Glucose Ketones Leukocytes Nitrite Labor Signs Protein Cervic Dilation Cervic Effacement Cervic Station 39 cm none trace Negative Gautam Willard trace Type Weight in lbs Pre/Post Dialysis Refused Weight 227.5309123261 BP Diastolic BP Location Tested BP Systolic [...]
[2025-06-02 05:33] LABS: Hematocrit 34.4 % (36-47); Hemoglobin 11.60 g/dL (11.27-16.99); Mean Corpuscular HGB Conc 33.7 g/dL (30-55); Mean Corpuscular Hemoglobin 29.2 pg (27-33); Mean Corpuscular Volume 86.6 fl (85-98); Nucleated Red Blood Cells % 0 %; Platelet Count 200 10^3/cmm (157-399); Red Blood Count 3.97 10^6/uL (3.85-5.65); White Blood Count 9.55 10^3/uL (3.29-11.43)
--- NOTE | 2025-06-02 06:26 | P.ANESUD_ITS ---
Pre-Anesthetic Update Pre-Anesthetic Assessment: Date of Surgery/Procedure: 06/02/25 Preop Lizbeth gnosis: IUP Proposed Procedure: Operation Date: 06/02/25 07:20 Proposed Procedures p Section Repeat With Tubal(Bilateral) - Rancho Bates MD Any changes to Pre-Anesthetic Assessment?: No Last Intake: Intake Last Liquid Date 06/01/25 Last Liquid Time 21:10 Last Solid Date 06/01/25 Last Solid Time 21:10 Last Intake: 21:00 Labs Last 48hrs: Short CBC 06/02/25 Range/Units 05:23 WBC 9.55 (3.29-11.43) 10^ 3/uL Hgb 11.60 (11.27-16.99) g/ dL Hct 34.4 L (36-47) % MCV 86.6 (85-98) fl Plt Count 200 (157-399) 10^3/c mm Neut % (Auto) 64.6 % Neut # (Auto) 6.17 (1.8-7.7) 10^3/u L Blood Bank 06/02/25 05:23 Blood Type O Negative Rho(D) Type Rh negative Antibody Screen Negative Vitals: Pulse Rhythm Regular 06/02/25 05:15 Pulse Strength 3+ Normal 06/02/25 05:15 Respiratory Rate 18 06/02/25 05:12 Respiratory Effort Spontaneous, Non- Labored 06/02/25 05:15 Oxygen Delivery Me thod Room Air 06/02/25 05:15 Exam: Pre-Anes Outpt Exam: alert, oriented x 3, clear to auscultation bilaterally and regular rate & rhythm
--- NOTE | 2025-06-02 07:14 | P.HP_ITS ---
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 She has had an unremarkable . Her due date is based on her first trimester ultrasound. She has had 2 previous sections. Her blood type is O-. Her antibody screen is negative. She passed her 3-hour glucose screen. She is GBS negative. Rubella immune. Her drug screen was negative. The remainder of her infectious disease profile was within normal limits. Present Details : 3 Para: 2 Labs Rubella: Immune RPR: Negative GBS: Negative Medications/Allergies Home Medications ?Medication ?Instructions ?Recorded ?Confirmed ?Last Taken ?Type multivitamin no.51-ferrous 1 cap PO BREAKFAST #90 caps 07/09/21 06/02/25 06/02/25 Rx fumarate 106.5 mg-folic acid 1 mg capsule (-U) Zofran 1 tab PO PRN PRN Nausea And 06/02/25 06/02/25 Unknown History Vomiting cetirizine 10 mg PO DAILY 06/02/2505/1905/31/25 History Allergies Allergy/AdvReac Type Severity Reaction Status Date / Time latex Allergy ALGY-Anaphy Verified 06/02/25 05:26 laxis Penicillins Allergy Unknown Verified 07/09/21 14:49 PFSH 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 2 PFSH: Surgical History (Updated 06/02/25 @ 07:25 by Rancho Bates MD) Previous section X 2 Vitals/I&O/Wt Last Vital Signs Resp 18 06/02/25 05:12 O2 Del Method Room Air 06/02/25 05:15 Weight last 48 hrs Weight 227 lb Physical Exam 2 Const: COMMON NORMALS: patient oriented x3 and alert HENMT: COMMON NORMALS: moist oral mucous membranes HEAD & SCALP: normal to inspection Chest: COMMONS NORMALS: normal inspection of the chest Resp: COMMON NORMALS: clear to auscultation bilaterally AUSCULTATION: clear to auscultation bilaterally Cardio: COMMON NORMALS: regular rate and regular rhythm RATE: regular rate RHYTHM: regular rhythm GI: INSPECTION: Yes normal to inspection and Yes other (Gravid) Extremity: COMMON NORMALS: normal to inspection GENERAL: Yes edema (Trace) Neuro: COMMON NORMALS: patient oriented x3, moves all extremities and no sensory deficits noted SENSORIUM/ORIENTATION: Yes alert Psych: COMMON NORMALS: mental status grossly normal Skin: COMMON NORMALS: no rashes or lesions noted GENERAL SKIN EXAM: no rashes or lesions noted Data 06/02/25 05:23 Results Labs OB ([facility]): 2 Obstetrics 02/04/25 Blood Type O Negative Today Antibody Screen Negative Today Hct, (36-47) 34.4 % L Today Hgb, (11.27-16.99) 11.60 g/dL Today Rho(D) Type Rh negative Today Plt Count, (157-399) 200 10^3/cmm Today Uric Acid, (2.4-5.7) 6.0 mg/dL H 05/25/25 A&P Assessment and plan 1. 39 weeks gestation of : Will proceed with a repeat section. We discussed the risk of bleeding, infection, damage to intra-abdominal organ yesterday in my office as well as earlier in her . We also discussed the risks of a tubal ligation including the risks of getting again despite a successful tubal ligation. 2. History of low transverse section: 3. Sterilization: PDMP PDMP Reviewed: Not Reviewed Attestations 2 Medical Necessity Statement*: I anticipate routine and post care Coding Level of Care Code Acute Code for Chg Fwd Diagnoses 39 weeks gestation of Z3A.39 History of low transverse section Z98.891 Sterilization Z30.2
[2025-06-02] MEDS: metoclopramide 5 mg/mL SDV 2 mL 10 MG IVP (09:07)
[2025-06-02] MEDS: ceFAZolin 2,000 mg SDV 2000 MG IVP (09:07)
[2025-06-02] MEDS: BUPivacaine 0.5% INJ 30 mL INJECTION (10:14)
--- NOTE | 2025-06-02 10:37 | P.OP_ITS ---
Operative Report Date of procedure: June 02, 2025 Pre-op diagnosis: 1. 30-year-old 3 para 2-0-0-2 with a history of a section presenting for repeat section 2. Multigravida desiring sterilization Post-op diagnosis: Status post low-transverse section and bilateral tubal ligation Procedure done: Low-transverse section and bilateral tubal ligation using modified [place] technique Specimens removed/disposition: 1. Bilateral fallopian tube segments with the right segment being tagged. 2. Male with a weight 3530 g of and Apgars of 8, 9 Pathology: Bilateral fallopian tube segments with the right segment being tagged Surgeon: Rancho Bates MD Estimated blood loss (mL): 500 Complications: None Procedure: The patient was brought back to the operating room where she was prepped and draped in usual sterile fashion. Anesthesia was found to be adequate. A lower transverse skin incision was then made with a #10 blade. I then dissected down to the underlying subcutaneous tissue until arriving at the prerectal fascia. The fascia was then nicked with the scalpel bilaterally. The fascial incisions were then carried laterally with Eid scissors. Attention was then turned to the superior aspect of the incision which was grasped with kochers and tented up away from the underlying rectus abdominis muscles. The muscles were then dissected away from the fascia manually, and later with Eid scissors. Attention was then turned to the inferior aspect of the incision, and the fascia was dissected away from the underlying muscle in similar fashion. The rectus abdominis muscles were then spread manually. The peritoneum was entered manually. Excellent visualization of the uterus was noted. A lower transverse uterine incision was then made with a #10 blade. Upon arriving at the intrauterine cavity, the uterine incision was then extended manually. The was noted to be in vertex position. The baby was delivered without difficulty. After delivery of the head, the mouth and nose were suctioned at the site of the incision. There was no meconium. There was no nuchal cord. The remainder of the body was then delivered and placed on the abdomen. The cord was cut and clamped. The baby was then handed to the waiting nurse. The placenta was removed intact. The uterus was externalized. The intrauterine cavity was cleansed of any remaining debris. The uterine incision was reapproximated in 2 layers. The first layer was performed with 0 Vicryl in a running locked stitch. The second layer was an imbricating stitch also using 0 Vicryl. Attention was then turned to the fallopian tubes. The right fallopian tube was ligated Cauterized in a modified [place] fashion with 0 plain gut. The left fallopian tube was also ligated and cauterized in similar fashion. The uterus was replaced into the abdomen. The peritoneum was then irrigated with warm saline. I reexamined the uterine incision and found it to be hemostatic. The rectus abdominis muscles were then reapproximated using 0 Vicryl in a running stitch. The fascia was then reapproximated using 0 Vicryl in running stitch. The subcutaneous tissue was then reapproximated using 0 Vicryl in a running stitch. The skin was reapproximated using 4-0 Vicryl in a subcuticular stitch. Steri-Strips were placed with benzoin. A sterile dressing was placed. All counts were correct x2. Both the mother and baby were in stable condition.
[2025-06-02] MEDS: HYDROcodone-acetaminophen 5-325 mg Tablet PO (17:10)
[2025-06-02] MEDS: ferrous sulfate EC 325 mg Tablet PO (17:11)
[2025-06-02 22:35] LABS: Hematocrit 29.5 % (36-47); Hemoglobin 9.90 g/dL (11.27-16.99); Mean Corpuscular HGB Conc 33.6 g/dL (30-55); Mean Corpuscular Hemoglobin 29.6 pg (27-33); Mean Corpuscular Volume 88.1 fl (85-98); Platelet Count 164 10^3/cmm (157-399); Red Blood Count 3.35 10^6/uL (3.85-5.65); White Blood Count 9.26 10^3/uL (3.29-11.43)
[2025-06-03 04:17] VITALS: BP 130/75; PULSE 70
[2025-06-03] MEDS: HYDROcodone-acetaminophen 5-325 mg Tablet PO ×2 (04:28→12:49)
[2025-06-03 08:27] VITALS: BP 137/73; PULSE 60; RESP 16; TEMP 36.2; O2SAT 100
[2025-06-03] MEDS: ferrous sulfate EC 325 mg Tablet PO (08:33)
[2025-06-03] MEDS: PRENATAL VIT NO.130/IRON/FOLIC 1 EACH TABLET PO (08:33)
--- NOTE | 2025-06-03 15:01 | P.DS_ITS ---
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 39 weeks gestation of : 2. History of low transverse section: 3. Sterilization: Reason for Visit Reason for Visit: Repeat Section with Tubal Hospital Course Hospital Course The patient presented to the hospital for a repeat section and bilateral tubal ligation. She had an unremarkable surgery. Her postoperative course was also unremarkable. Her bleeding was within normal limits. Her pain was well-controlled. She passed flatus. Her diet was advanced there were no concerns. Information Peripartum Data: Infant Delivery Method: Physical Exam Narrative: The patient is alert and oriented. Lungs are clear to auscultation bilaterally Heart has a regular rate and rhythm The fundus is below the umbilicus and firm The incision is clean dry and intact Extremities have trace edemaThe patient is alert and oriented. Urinary Catheter Management: Claros Latex Free: Cath Placed During This Visit: yes, but has since been removed by the nurse Reason for Continuing Indwelling Catheter: Decision to DC Catheter Urinary Catheter Date of Insertion: 06/02/25 Urinary Catheter Time of Insertion: 09:30 Date Urinary Catheter Removed: 06/02/25 Time Urinary Catheter Discontinued: 21:15 Discharge Data Studies Completed and Pending Pending at discharge Category Date Time Status Pathology: Surgical [PTH] Routine Pth 06/02/25 11:41 Received Laboratory Results WBC 9.26 10^3/uL (3.29-11.43) 06/02/25 22:15 RBC 3.35 10^6/uL (3.85-5.65) L 06/02/25 22:15 Hgb 9.90 g/dL (11.27-16.99) L 06/02/25 22:15 Hct 29.5 % (36-47) L 06/02/25 22:15 MCV 88.1 fl (85-98) 06/02/25 22:15 MCH 29.6 pg (27-33) 06/02/25 22:15 MCHC 33.6 g/dL (30-55) 06/02/25 22:15 RDW 12.5 % (12.1-15.1) 06/02/25 22:15 Plt Count 164 10^3/cmm (157-399) 06/02/25 22:15 MPV 11.6 fL (7.4-10.4) H 06/02/25 22:15 Neut % (Auto) 64.6 % 06/02/25 05:23 Lymph % (Auto) 26.1 % 06/02/25 05:23 Phelps % (Auto) 7.9 % 06/02/25 05:23 Eos % (Auto) 0.8 % 06/02/25 05:23 Baso % (Auto) 0.2 % 06/02/25 05:23 Neut # (Auto) 6.17 10^3/uL (1.8-7.7) 06/02/25 05:23 Lymph # (Auto) 2.5 10^3/uL (0.8-4.8) 06/02/25 05:23 Phelps # (Auto) 0.8 10^3/uL (0.2-0.9) 06/02/25 05:23 Eos # (Auto) 0.1 10^3/uL (0.0-0.8) 06/02/25 05:23 Baso # (Auto) 0.0 10^3/uL (0.0-0.1) 06/02/25 05:23 Nucleated RBC % (auto) 0 % 06/02/25 05:23 Nucleated RBCs # 0.0 /100WBC 06/02/25 05:23 Blood Type O Negative 06/02/25 05:23 Rho(D) Type Rh negative 06/02/25 05:23 Antibody Screen Negative 06/02/25 05:23 Screen Negative (Negative) 06/02/25 22:15 Vitals Last Vital Signs Temp 97.2 F L 06/03/25 08:27 Pulse 60 06/03/25 08:27 Resp 16 06/03/25 08:27 BP 137/73 06/03/25 08:27 Pulse Ox 100 06/03/25 08:27 O2 Del Method Room Air 06/03/25 08:27 Results Labs OB ([facility]): Obstetrics US 02/04/25 Blood Type O Negative 06/02/25 Antibody Screen Negative 06/02/25 Hct, (36-47) 29.5 % L 06/02/25 Hgb, (11.27-16.99) 9.90 g/dL L 06/02/25 Rho(D) Type Rh negative 06/02/25 Plt Count, (157-399) 164 10^3/cmm 06/02/25 Uric Acid, (2.4-5.7) 6.0 mg/dL H 05/25/25 Discharge Plan Discharge Patient Disposition: Home Condition: Stable Prescriptions: New ibuprofen 800 mg Tablet 800 mg PO TID Qty: 45 0RF hydrocodone-acetaminophen 5-325 mg Tablet 1 - 2 tab PO Q4H PRN (Reason: Moderate To Severe Pain) Qty: 28 0RF docusate sodium 100 mg Capsule 100 mg PO BID Qty: 14 0RF Continued -U 106.5-1 mg Capsule 1 cap PO BREAKFAST Qty: 90 0RF cetirizine 10 mg PO DAILY Discontinued Zofran 1 tab PO PRN PRN (Reason: Nausea And Vomiting) Discharge Order = DC NOW: Discharge Order (Routine); Ordered 06/03/25 Ordered By: Rancho Bates Referrals: Rancho Bates MD [Primary Care Provider, [facility]] - 06/08/25 8:50 am Referral Note: 6 week postop appointment is scheduled 07/14/25 @ 11:00 AM Discharge Diet: Usual diet Discharge Activity: Limit activity as instructed Patient Instructions: Depression (DC), Opioid Safety (DC), Preeclampsia and Eclampsia After Delivery (GEN), Hemorrhage (DC), OB - Jana/Fausto, OB Discharge Report, OB Food/Drug Interaction Guide, OB Care at Home, Opioid Safety, Patient Portal & Brandyn Instructions, Abnormal Bleeding Discharge Attestations 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
[2025-06-03 15:30] VITALS: BP 144/69; PULSE 65
[2025-06-03 15:31] VITALS: RESP 17; TEMP 36; O2SAT 100
[2025-06-03 15:50] VITALS: BP 144/69; PULSE 65; RESP 17; TEMP 36; O2SAT 100
== END 2025-06-03 15:50 | disposition home or self-care (01) | DRG 785 ==
PROVIDERS: Admitting Provider Family Medicine; PCP Family Medicine; Visit Provider Family Medicine
PROC: 10D00Z1 Extraction of Products of Conception, Low, Open Approach (ICD-10-PCS; CPT 59514; principal; 2025-06-02 07:00)
DX: O34.211 Maternal care for low transverse scar from previous cesarean delivery (principal); N85.8 Other specified noninflammatory disorders of uterus; Z3A.39 39 weeks gestation of pregnancy; Z37.0 Single live birth
CPT/HCPCS: 36415; 36430; 51702; 59025; 59409; 85025; 85027; 85460; 86850; 86900; 88302; 90384; J0690; J1885; J2274; J2405; J2590; J2765; J3010; J3490; J7030; J7121; J9999